=== PATIENT | female | born 1975 | race Caucasian/White ===

== ENCOUNTER 2024-08-08 19:50 | Emergency (ER) | payer BC, SELFPAY ==
[2024-08-08] MEDS ORDERED: Ondansetron ODT 4 MG TAB ONE (20:26)
[2024-08-08] MEDS ORDERED: Morphine 4 MG/ML VIAL ONE (20:46)
[2024-08-08] MEDS ORDERED: Ketorolac Tromethamine 30 MG (1 mL) VIAL ONE (20:46)
== END 2024-08-08 20:12 | disposition home or self-care (01) ==
LOC: ERS 19:50
DX: M54.32 Sciatica, left side (principal); E11.9 Type 2 diabetes mellitus without complications
CPT/HCPCS: 96372; 99282; J1885; J2270; Q0162

== ENCOUNTER 2024-08-09 08:16 | Emergency (ER) | payer BC, SELFPAY ==
[2024-08-09] MEDS ORDERED: Ketorolac Tromethamine 30 MG (1 mL) VIAL ONE (08:50)
[2024-08-09] MEDS ORDERED: Dexamethasone 10 MG/ML VIAL ONE (08:50)
[2024-08-09] MEDS ORDERED: Ondansetron PF 4 MG/2 ML Vial ONE (08:51)
[2024-08-09] MEDS ORDERED: Morphine 4 MG/ML VIAL ONE (08:51)
[2024-08-09] MEDS ORDERED: Ondansetron ODT 4 MG TAB ONE (08:53)
== END 2024-08-09 09:05 | disposition home or self-care (01) ==
LOC: ERS 08:16
DX: M54.42 Lumbago with sciatica, left side (principal); E11.9 Type 2 diabetes mellitus without complications
CPT/HCPCS: 96372; J1100; J1885; J2270; J2405; Q0162